=== PATIENT | female | born 1995 | race Caucasian/White ===

== ENCOUNTER 2017-05-03 14:03 | Emergency (ER) | payer BC, OTHER ==
[2017-05-03] MEDS ORDERED: LIDOCAINE/EPI/TETRACAINE TOPICAL GEL 3 ML. TP ×2 (14:11)
[2017-05-03] MEDS: oxyCODONE/APAP 5/325 1 TAB TABLET PO ×2 (14:12)
[2017-05-03] MEDS: LIDOCAINE/EPI/TETRACAINE TOPICAL GEL 3 ML. TP ×4 (14:12)
[2017-05-03] MEDS: LIDOCAINE 2% 20 ML VIAL. IJ ×2 (14:15)
[2017-05-03] MEDS: DIPHTH,PERTUSS(ACELL),TET TOX 0.5 ML DISP.SYRIN. VAX IM ×2 (15:00)
[2017-05-03] MEDS ORDERED: NEOMY/BACITR/POLYMYXIN OINT PACKET. TP ×2 (16:00)
== END 2017-05-03 16:12 | disposition home or self-care (01) ==
LOC: ER 14:03
DX: S81.811A Laceration without foreign body, right lower leg, initial encounter (principal); F41.9 Anxiety disorder, unspecified; W26.8XXA Contact with other sharp object(s), not elsewhere classified, initial encounter; Y93.39 Activity, other involving climbing, rappelling and jumping off; Y92.89 Other specified places as the place of occurrence of the external cause; Y99.8 Other external cause status
CPT/HCPCS: 13121; 13122; 73590; 90471; 90715; 99285-25